=== PATIENT | female | born 1930 | race Caucasian/White ===

== ENCOUNTER → 2016-09-27 | Outpatient (CLI) | payer MEDICARE, BC ==
[~2016-09-27] MED LIST: CALCIUM CARBON500 M1 PO; CEFTIN500 MG PO; CIPRO 500MG TA500 MG PO; ELIQUIS 2.5 PO; FISH OIL CONC1000 MG PO; FOSAMAX PO; KLONOPIN 0.5MG0.5 MG PO; KLONOPIN 1MG1 MG PO; LEVAQUIN 750MG750 M1 PO; LOMOTIL 0.025 M1 TAB PO; MULTIPLE VITAMI1 TAB PO; MVI; OSCAL 500 TAB500 MG PO; PROTONIX 40MG T40 MG PO; TIMOPTIC; TIMOPTIC 0.5%-15 OU; ULTRAM 50MG TAB50 MG PO; VITAMIN E1000 U/CAP PO; VITAMIN E200 I1 PO
== END ==
LOC: COL.RAD 11:07
DX: M25.552 Pain in left hip (principal)
CPT/HCPCS: J3301; Q9967

== ENCOUNTER → 2016-12-05 | Outpatient (CLI) | payer MEDICARE, BC | LOC: COL.RAD 09:08 | DX: M16.12 Unilateral primary osteoarthritis, left hip (principal) | CPT/HCPCS: J3301; Q9967 ==

== ENCOUNTER 2017-01-26 16:00 | Inpatient (IN) | payer MEDICARE, BC ==
[~2017-01-26] VITALS: Ht 152.4 cm; Wt 49.6 kg
[~2017-01-26 16:00] MED LIST changes: -ELIQUIS 2.5 PO; -OSCAL 500 TAB500 MG PO; -ULTRAM 50MG TAB50 MG PO
[2017-02-20] VITALS (11 sets, daily range): BP systolic 94–126; BP diastolic 42–65; PULSE 59–85; TEMP 98.2–98.3
[2017-02-20] MEDS ORDERED: ULTRAM 50MG TAB50 MG PO (07:19)
[2017-02-21] VITALS (7 sets, daily range): BP systolic 82–1405; BP diastolic 33–80; PULSE 66–77; TEMP 97.5–98.6
[2017-02-21 06:25] LABS: HEMATOCRIT 35.3 % (37.0-47.0); HEMOGLOBIN 11.4 g/dl (12.5-16.0)
[2017-02-22] VITALS (7 sets, daily range): BP systolic 93–118; BP diastolic 35–53; PULSE 70–90; TEMP 96.9–98.3
[2017-02-22 07:59] LABS: HEMATOCRIT 38.2 % (37.0-47.0); HEMOGLOBIN 12.1 g/dl (12.5-16.0)
[2017-02-23 04:17] VITALS: BP 90/43; PULSE 92; TEMP 98.7
[2017-02-23 05:20] VITALS: BP 110/62
[2017-02-23 06:00] LABS: HEMATOCRIT 36.5 % (37.0-47.0); HEMOGLOBIN 11.5 g/dl (12.5-16.0)
[2017-02-23 07:17] VITALS: BP 105/51; PULSE 92; TEMP 98.2
[2017-02-23 09:56] VITALS: BP 105/51; PULSE 92; TEMP 98.2
== END 2017-02-23 10:49 | DRG 470 ==
LOC: JCC 02-20 06:11
PROVIDERS: Orthopaedic Surgery
PROC: 0SRB0JA Replacement of Left Hip Joint with Synthetic Substitute, Uncemented, Open Approach (ICD-10-PCS; principal; 2017-02-20 08:30)
DX: M16.12 Unilateral primary osteoarthritis, left hip (principal); E44.0 Moderate protein-calorie malnutrition; Z87.891 Personal history of nicotine dependence
CPT/HCPCS: A4315; A9284; C1713; C1776; J0690; J1100; J2250; J2405; J2704; J7030; J7042

== ENCOUNTER → 2017-02-13 | Outpatient (CLI) | payer MEDICARE, BC ==
[~2017-02-13] MED LIST changes: +ELIQUIS 2.5 PO; +OSCAL 500 TAB500 MG PO; +ULTRAM 50MG TAB50 MG PO
[2017-02-13 15:56] LABS: HIV 1/2 Antibodies Non-Reactive; HIV-1p24 Antigen Non-Reactive
== END ==
LOC: COL.LAB 14:49
PROVIDERS: Orthopaedic Surgery
DX: Z96.642 Presence of left artificial hip joint (principal)

== ENCOUNTER 2017-04-29 12:24 | Inpatient (IN) | payer MEDICARE, BC ==
[2017-04-29] VITALS (343 sets, daily range): BP systolic 136–165; BP diastolic 66–83; PULSE 86–841; TEMP 98.4; O2SAT 82–100
[~2017-04-29] VITALS: Ht 152.4 cm; Wt 51.4 kg
[~2017-04-29 12:24] MED LIST changes: -ELIQUIS 2.5 PO; -OSCAL 500 TAB500 MG PO
[2017-04-29] MEDS ORDERED: OSCAL 500 TAB500 MG PO (12:56)
[2017-04-29 13:29] LABS: BASO # 0.1 (0.0-0.2); EOS # 0.3 (0.0-0.7); EOS % 3.2 % (0-4.0); GRAN # 5.9 (1.4-6.5); GRAN % 69.5 % (42.2-75.2); HEMATOCRIT 41.5 % (37.0-47.0); HEMOGLOBIN 13.1 g/dl (12.5-16.0); LYMPH # 1.2 (1.2-3.4); LYMPH % 13.8 % (20.0-51.0); MEAN CELL VOLUME 91 fl (80.0-100.0); MEAN CORPUSCULAR HEMOGLOBIN 29 pg (27.0-31.0); MEAN CORPUSCULAR HGB CONC 32 g/dl (33.0-37.0); MEAN PLATELET VOLUME 9.8 fl (7.4-10.4); PLATELET COUNT 224 K/mm3 (130-400); RED BLOOD COUNT 4.55 M/mm3 (4.10-5.30); REDCELL DISTRIBUTION WIDTH-CV 12.4 % (11.5-14.5); WHITE BLOOD COUNT 8.4 K/mm3 (4.8-10.8)
[2017-04-29 13:46] LABS: PH 5 (5-8); URINE APPEARANCE Hazy; URINE BACTERIA None Seen /hpf; URINE BILIRUBIN Negative (NEGATIVE); URINE BLOOD Negative (NEGATIVE); URINE COLOR Yellow; URINE GLUCOSE Negative (NEGATIVE); URINE KETONE Negative (NEGATIVE); URINE UROBILINOGEN Negative (NEGATIVE)
[2017-04-29 13:47] LABS: ALANINE AMINOTRANSFERASE 21 U/L (9-52); ALBUMIN 3.7 gm/dL (3.5-5.0); ALKALINE PHOSPHATASE 81 U/L (50-136); ANION GAP 8 mmol/L (7-16); BILIRUBIN,TOTAL 0.6 mg/dL (0.0-1.0); BLOOD UREA NITROGEN 23 mg/dL (7-17); C-REACTIVE PROTEIN 2.8 mg/dL (0.0-0.9); CALCIUM 8.8 mg/dL (8.4-10.2); CARBON DIOXIDE 29 mmol/L (22-30); CHLORIDE 98 mmol/L (98-107); CREATININE, serum 0.79 mg/dL (0.52-1.25); GLUCOSE 82 mg/dL (74-106); POTASSIUM 4.7 mmol/L (3.4-5.0); SODIUM 135 mmol/L (137-145); TOTAL PROTEIN 6.3 gm/dL (6.4-8.2)
[2017-04-29 14:04] LABS: TROPONIN-I < 0.012 ng/mL (0.000-0.034)
[2017-04-30] VITALS (70 sets, daily range): BP systolic 119–140; BP diastolic 59–72; PULSE 69–97; TEMP 37.9; O2SAT 84–100
[2017-04-30 07:30] LABS: BASO % 0.8 % (0.0-2.0); EOS # 0.3 (0.0-0.7); EOS % 5.5 % (0-4.0); GRAN # 3.4 (1.4-6.5); GRAN % 66.4 % (42.2-75.2); HEMATOCRIT 38.3 % (37.0-47.0); HEMOGLOBIN 11.8 g/dl (12.5-16.0); LYMPH # 0.8 (1.2-3.4); LYMPH % 14.8 % (20.0-51.0); MEAN CELL VOLUME 94 fl (80.0-100.0); MEAN CORPUSCULAR HEMOGLOBIN 29 pg (27.0-31.0); MEAN CORPUSCULAR HGB CONC 31 g/dl (33.0-37.0); MEAN PLATELET VOLUME 9.7 fl (7.4-10.4); MONO # 0.6 (0.1-0.6); MONO % 11.9 % (1.7-9.3); PLATELET COUNT 172 K/mm3 (130-400); RED BLOOD COUNT 4.09 M/mm3 (4.10-5.30); REDCELL DISTRIBUTION WIDTH-CV 12.3 % (11.5-14.5); WHITE BLOOD COUNT 5.1 K/mm3 (4.8-10.8)
[2017-04-30 07:39] LABS: CALCIUM 8.2 mg/dL (8.4-10.2); CREATININE, serum 0.71 mg/dL (0.52-1.25); POTASSIUM 4.2 mmol/L (3.4-5.0)
[2017-05-01 03:14] VITALS: BP 121/50; PULSE 74; TEMP 98.7
[2017-05-01 08:38] VITALS: BP 134/60; PULSE 89; TEMP 98.7
[2017-05-01 09:35] LABS: BASO % 0.5 % (0.0-2.0); EOS # 0.4 (0.0-0.7); EOS % 5.5 % (0-4.0); GRAN # 5.4 (1.4-6.5); GRAN % 70.4 % (42.2-75.2); LYMPH # 1.1 (1.2-3.4); LYMPH % 14.4 % (20.0-51.0); MEAN CELL VOLUME 92 fl (80.0-100.0); MEAN CORPUSCULAR HEMOGLOBIN 29 pg (27.0-31.0); MEAN CORPUSCULAR HGB CONC 32 g/dl (33.0-37.0); MEAN PLATELET VOLUME 9.5 fl (7.4-10.4); MONO # 0.7 (0.1-0.6); MONO % 8.9 % (1.7-9.3); PLATELET COUNT 204 K/mm3 (130-400); RED BLOOD COUNT 4.45 M/mm3 (4.10-5.30); REDCELL DISTRIBUTION WIDTH-CV 12.5 % (11.5-14.5); WHITE BLOOD COUNT 7.7 K/mm3 (4.8-10.8)
[2017-05-01 09:50] LABS: CALCIUM 8.9 mg/dL (8.4-10.2); CREATININE, serum 0.81 mg/dL (0.52-1.25); POTASSIUM 3.7 mmol/L (3.4-5.0)
[2017-05-01 11:30] VITALS: BP 11/56; PULSE 77; TEMP 98.5
[2017-05-01 17:07] VITALS: BP 118/52; PULSE 74; TEMP 98.1
[2017-05-01 19:16] VITALS: BP 108/49; PULSE 73; TEMP 97.9
[2017-05-02 00:02] VITALS: BP 120/54; PULSE 66; TEMP 97.8
[2017-05-02 03:27] VITALS: BP 101/54; PULSE 69; TEMP 99
[2017-05-02 06:40] LABS: BASO # 0.1 (0.0-0.2); BASO % 0.8 % (0.0-2.0); EOS # 0.5 (0.0-0.7); EOS % 7.4 % (0-4.0); GRAN # 3.6 (1.4-6.5); GRAN % 58.9 % (42.2-75.2); LYMPH # 1.3 (1.2-3.4); LYMPH % 20.7 % (20.0-51.0); MEAN CELL VOLUME 92 fl (80.0-100.0); MEAN CORPUSCULAR HGB CONC 31 g/dl (33.0-37.0); MEAN PLATELET VOLUME 9.5 fl (7.4-10.4); MONO # 0.7 (0.1-0.6); PLATELET COUNT 178 K/mm3 (130-400); RED BLOOD COUNT 3.99 M/mm3 (4.10-5.30); REDCELL DISTRIBUTION WIDTH-CV 12.5 % (11.5-14.5); WHITE BLOOD COUNT 6.1 K/mm3 (4.8-10.8)
[2017-05-02 06:46] LABS: HEMATOCRIT 36.8 % (37.0-47.0); HEMOGLOBIN 11.4 g/dl (12.5-16.0); MEAN CORPUSCULAR HEMOGLOBIN 29 pg (27.0-31.0)
[2017-05-02 06:51] LABS: CALCIUM 8.5 mg/dL (8.4-10.2); CREATININE, serum 0.69 mg/dL (0.52-1.25)
[2017-05-02 07:37] VITALS: BP 115/46; PULSE 71; TEMP 97.2
[2017-05-02] MEDS ORDERED: ELIQUIS 2.5 PO (09:52)
== END 2017-05-02 11:16 | disposition home health service (06) | DRG 176 ==
LOC: COL.ER 12:24 → ICU 15:25 → MEDICAL 15:25 → ICU 15:25 → COL.ER 15:25 → MEDICAL 04-30 12:03 → ICU 04-30 12:03 → MEDICAL 05-02 11:16
PROVIDERS: Family Medicine
DX: I26.99 Other pulmonary embolism without acute cor pulmonale (principal); E87.1 Hypo-osmolality and hyponatremia; I82.4Z2 Acute embolism and thrombosis of unspecified deep veins of left distal lower extremity; Z87.891 Personal history of nicotine dependence; Z96.642 Presence of left artificial hip joint
CPT/HCPCS: 99223-AI; 99233-AI; 99239; J1650; J7030

== ENCOUNTER 2017-05-06 11:05 | Emergency (ER) | payer MEDICARE, BC ==
[~2017-05-06] VITALS: Ht 152.4 cm; Wt 50.5 kg
[~2017-05-06 11:05] MED LIST changes: +ELIQUIS 2.5 PO; +OSCAL 500 TAB500 MG PO
[2017-05-06 11:07] VITALS: TEMP 97.7
[2017-05-06 11:44] LABS: BASO # 0.1 (0.0-0.2); EOS # 0.3 (0.0-0.7); EOS % 4.3 % (0-4.0); GRAN # 4.1 (1.4-6.5); HEMATOCRIT 44.5 % (37.0-47.0); HEMOGLOBIN 13.7 g/dl (12.5-16.0); MEAN CELL VOLUME 92 fl (80.0-100.0); MEAN CORPUSCULAR HEMOGLOBIN 28 pg (27.0-31.0); MEAN CORPUSCULAR HGB CONC 31 g/dl (33.0-37.0); MEAN PLATELET VOLUME 9.9 fl (7.4-10.4); MONO # 0.7 (0.1-0.6); MONO % 11.2 % (1.7-9.3); PLATELET COUNT 283 K/mm3 (130-400); RED BLOOD COUNT 4.84 M/mm3 (4.10-5.30); REDCELL DISTRIBUTION WIDTH-CV 12.6 % (11.5-14.5); WHITE BLOOD COUNT 6.1 K/mm3 (4.8-10.8)
[2017-05-06 11:50] LABS: INR 1.2 (0.8-3.0); PROTHROMBIN TIME 12.8 SECONDS (9.7-12.8)
[2017-05-06 11:53] LABS: PARTIAL THROMBOPLASTIN TIME 31.2 SECONDS (26.0-37.0)
[2017-05-06 11:57] LABS: ADJUSTED CALCIUM 9.2 mg/dL (8.4-10.2); ALANINE AMINOTRANSFERASE 36 U/L (9-52); ALKALINE PHOSPHATASE 74 U/L (50-136); ANION GAP 10 mmol/L (7-16); BILIRUBIN,TOTAL 0.6 mg/dL (0.0-1.0); BLOOD UREA NITROGEN 18 mg/dL (7-17); CALCIUM 9.2 mg/dL (8.4-10.2); CARBON DIOXIDE 31 mmol/L (22-30); CHLORIDE 95 mmol/L (98-107); CREATININE, serum 0.79 mg/dL (0.52-1.25); GLUCOSE 75 mg/dL (74-106); LIPASE 66 U/L (23-300); POTASSIUM 4.3 mmol/L (3.4-5.0); SODIUM 137 mmol/L (137-145)
[2017-05-06 12:09] LABS: B-TYPE NATRIURETIC PEPTIDE 379 pg/mL (0-450)
[2017-05-06 12:16] LABS: TROPONIN-I < 0.012 ng/mL (0.000-0.034)
[2017-05-06 15:39] VITALS: BP 121/70; PULSE 83
== END 2017-05-06 15:40 | disposition home or self-care (01) ==
LOC: COL.ER 11:05
PROVIDERS: Emergency Medicine
DX: J43.9 Emphysema, unspecified (principal); R09.02 Hypoxemia; I26.99 Other pulmonary embolism without acute cor pulmonale; Z79.01 Long term (current) use of anticoagulants; Z99.81 Dependence on supplemental oxygen; Z86.718 Personal history of other venous thrombosis and embolism; Z96.642 Presence of left artificial hip joint
CPT/HCPCS: J1100; Q9967

== ENCOUNTER 2017-06-09 10:55 | Emergency (ER) | payer MEDICARE, BC ==
[~2017-06-09] VITALS: Ht 152.4 cm; Wt 51.3 kg
[2017-06-09 11:00] VITALS: TEMP 97.8
[2017-06-09 11:33] LABS: BASO # 0.1 (0.0-0.2); BASO % 0.8 % (0.0-2.0); EOS # 0.1 (0.0-0.7); EOS % 2.3 % (0-4.0); GRAN # 4.1 (1.4-6.5); GRAN % 68.1 % (42.2-75.2); HEMATOCRIT 43.1 % (37.0-47.0); HEMOGLOBIN 13.3 g/dl (12.5-16.0); LYMPH # 1.2 (1.2-3.4); LYMPH % 19.6 % (20.0-51.0); MEAN CELL VOLUME 91 fl (80.0-100.0); MEAN CORPUSCULAR HEMOGLOBIN 28 pg (27.0-31.0); MEAN CORPUSCULAR HGB CONC 31 g/dl (33.0-37.0); MEAN PLATELET VOLUME 9.5 fl (7.4-10.4); MONO # 0.5 (0.1-0.6); PLATELET COUNT 226 K/mm3 (130-400); RED BLOOD COUNT 4.76 M/mm3 (4.10-5.30); REDCELL DISTRIBUTION WIDTH-CV 13.6 % (11.5-14.5)
[2017-06-09 11:42] LABS: INR 1.7 (0.8-3.0); PROTHROMBIN TIME 19.1 SECONDS (9.7-12.8)
[2017-06-09 11:45] LABS: ADJUSTED CALCIUM 9.1 mg/dL (8.4-10.2); ALANINE AMINOTRANSFERASE 25 U/L (9-52); ALBUMIN 4.1 gm/dL (3.5-5.0); ALKALINE PHOSPHATASE 66 U/L (50-136); ANION GAP 7 mmol/L (7-16); BILIRUBIN,TOTAL 0.8 mg/dL (0.0-1.0); BLOOD UREA NITROGEN 18 mg/dL (7-17); CALCIUM 9.2 mg/dL (8.4-10.2); CARBON DIOXIDE 31 mmol/L (22-30); CHLORIDE 100 mmol/L (98-107); CREATININE, serum 0.76 mg/dL (0.52-1.25); GLUCOSE 91 mg/dL (74-106); LIPASE 81 U/L (23-300); POTASSIUM 4.6 mmol/L (3.4-5.0); SODIUM 137 mmol/L (137-145); TOTAL PROTEIN 6.9 gm/dL (6.4-8.2)
[2017-06-09 12:02] LABS: TROPONIN-I < 0.012 ng/mL (0.000-0.034)
[2017-06-09 12:07] LABS: PH 6 (5-8); SQUAMOUS EPITHELIAL 0-2 /hpf; URINE APPEARANCE Hazy; URINE BACTERIA None Seen /hpf; URINE BILIRUBIN Negative (NEGATIVE); URINE BLOOD Negative (NEGATIVE); URINE COLOR Yellow; URINE GLUCOSE Negative (NEGATIVE); URINE KETONE Negative (NEGATIVE); URINE RBC 0-2 /hpf; URINE UROBILINOGEN Negative (NEGATIVE); URINE WBC 0-2 /hpf
[2017-06-09 13:25] VITALS: BP 136/63; PULSE 75
== END 2017-06-09 13:27 | disposition home or self-care (01) ==
LOC: COL.ER 10:55
PROVIDERS: Emergency Medicine
DX: R07.9 Chest pain, unspecified (principal); R53.81 Other malaise; Z90.49 Acquired absence of other specified parts of digestive tract; Z90.710 Acquired absence of both cervix and uterus; Z90.89 Acquired absence of other organs; Z79.01 Long term (current) use of anticoagulants
CPT/HCPCS: J7040; Q9967

== ENCOUNTER 2017-07-10 17:11 | Observation (INO) | payer MEDICARE, BC ==
[~2017-07-10] VITALS: Ht 152.4 cm; Wt 51.6 kg
[2017-07-10] MEDS ORDERED: COUMADIN 22.5 MG/TAB PO (17:30)
[2017-07-10 18:29] LABS: BASO # 0.1 (0.0-0.2); BASO % 0.8 % (0.0-2.0); EOS # 0.1 (0.0-0.7); EOS % 1.7 % (0-4.0); GRAN # 5.5 (1.4-6.5); GRAN % 72.7 % (42.2-75.2); HEMATOCRIT 42.9 % (37.0-47.0); HEMOGLOBIN 13.6 g/dl (12.5-16.0); LYMPH # 1.1 (1.2-3.4); LYMPH % 14.2 % (20.0-51.0); MEAN CELL VOLUME 91 fl (80.0-100.0); MEAN CORPUSCULAR HEMOGLOBIN 29 pg (27.0-31.0); MEAN CORPUSCULAR HGB CONC 32 g/dl (33.0-37.0); MEAN PLATELET VOLUME 9.4 fl (7.4-10.4); MONO # 0.8 (0.1-0.6); MONO % 10.2 % (1.7-9.3); PLATELET COUNT 247 K/mm3 (130-400); RED BLOOD COUNT 4.71 M/mm3 (4.10-5.30); WHITE BLOOD COUNT 7.5 K/mm3 (4.8-10.8)
[2017-07-10 18:43] LABS: INR 2.5 (0.8-3.0); PROTHROMBIN TIME 28.6 SECONDS (9.7-12.8)
[2017-07-10 18:44] LABS: ADJUSTED CALCIUM 9.1 mg/dL (8.4-10.2); ALANINE AMINOTRANSFERASE 26 U/L (9-52); ALBUMIN 4.1 gm/dL (3.5-5.0); ALKALINE PHOSPHATASE 74 U/L (50-136); ANION GAP 10 mmol/L (7-16); BILIRUBIN,TOTAL 0.8 mg/dL (0.0-1.0); BLOOD UREA NITROGEN 23 mg/dL (7-17); CALCIUM 9.2 mg/dL (8.4-10.2); CARBON DIOXIDE 31 mmol/L (22-30); CHLORIDE 92 mmol/L (98-107); GLUCOSE 96 mg/dL (74-106); POTASSIUM 4.4 mmol/L (3.4-5.0); SODIUM 132 mmol/L (137-145); TOTAL PROTEIN 6.8 gm/dL (6.4-8.2)
[2017-07-10 19:00] LABS: TROPONIN-I < 0.012 ng/mL (0.000-0.034)
[2017-07-11 00:52] VITALS: BP 150/50; PULSE 86; TEMP 97.5
[2017-07-11] MEDS ORDERED: COUMADIN 5MG5 MG/TAB PO (02:23)
[2017-07-11 03:39] VITALS: BP 125/58; PULSE 79; TEMP 97.5
[2017-07-11 06:38] LABS: BASO % 0.4 % (0.0-2.0); EOS % 0.6 % (0-4.0); GRAN # 5.4 (1.4-6.5); GRAN % 74.8 % (42.2-75.2); HEMATOCRIT 37.7 % (37.0-47.0); LYMPH # 0.9 (1.2-3.4); LYMPH % 12.3 % (20.0-51.0); MEAN CELL VOLUME 93 fl (80.0-100.0); MEAN CORPUSCULAR HEMOGLOBIN 29 pg (27.0-31.0); MEAN CORPUSCULAR HGB CONC 31 g/dl (33.0-37.0); MEAN PLATELET VOLUME 9.3 fl (7.4-10.4); MONO # 0.8 (0.1-0.6); MONO % 11.5 % (1.7-9.3); PLATELET COUNT 198 K/mm3 (130-400); RED BLOOD COUNT 4.06 M/mm3 (4.10-5.30); WHITE BLOOD COUNT 7.2 K/mm3 (4.8-10.8)
[2017-07-11 06:40] LABS: INR 2.3 (0.8-3.0); PROTHROMBIN TIME 26.1 SECONDS (9.7-12.8)
[2017-07-11 06:41] LABS: HEMOGLOBIN 11.7 g/dl (12.5-16.0)
[2017-07-11 06:50] LABS: CALCIUM 8.5 mg/dL (8.4-10.2); CREATININE, serum 0.68 mg/dL (0.52-1.25); POTASSIUM 4.2 mmol/L (3.4-5.0)
[2017-07-11 07:27] VITALS: BP 116/50; PULSE 75; TEMP 98.3
[2017-07-11 11:26] VITALS: BP 114/53; PULSE 83; TEMP 98.1
[2017-07-16] MEDS ORDERED: VITAMIN D31000 I1 PO (13:27)
[2017-07-16] MEDS ORDERED: COUMADIN 22.5 MG/TAB PO (13:58)
== END 2017-07-11 14:18 | disposition home or self-care (01) ==
LOC: COL.ER 17:11 → PEDS 23:31
PROVIDERS: Emergency Medicine; Nurse Practitioner Family
DX: S02.2XXA Fracture of nasal bones, initial encounter for closed fracture (principal); S00.83XA Contusion of other part of head, initial encounter; R04.0 Epistaxis; W13.3XXA Fall through floor, initial encounter; E44.0 Moderate protein-calorie malnutrition; Y92.59 Other trade areas as the place of occurrence of the external cause; J44.9 Chronic obstructive pulmonary disease, unspecified; I10 Essential (primary) hypertension; E87.1 Hypo-osmolality and hyponatremia; M19.90 Unspecified osteoarthritis, unspecified site; Z96.642 Presence of left artificial hip joint; Z90.49 Acquired absence of other specified parts of digestive tract; Z79.01 Long term (current) use of anticoagulants; Z86.711 Personal history of pulmonary embolism; Z90.710 Acquired absence of both cervix and uterus; Z87.891 Personal history of nicotine dependence; Z82.49 Family history of ischemic heart disease and other diseases of the circulatory system
CPT/HCPCS: G0378; J0690; J1170; J2405; J2765; J3010; J7030; Q9967

== ENCOUNTER 2017-08-28 19:08 | Emergency (ER) | payer MEDICARE, BC ==
[~2017-08-28] VITALS: Wt 49.5 kg
[~2017-08-28 19:08] MED LIST changes: +COUMADIN 22.5 MG/TAB PO; +COUMADIN 5MG5 MG/TAB PO; +VITAMIN D31000 I1 PO
[2017-08-28] MEDS ORDERED: XARELTO20 MG PO (19:26)
[2017-08-28 19:30] LABS: BASO # 0.1 (0.0-0.2); BASO % 0.7 % (0.0-2.0); EOS # 0.2 (0.0-0.7); EOS % 2.4 % (0-4.0); GRAN # 4.5 (1.4-6.5); HEMATOCRIT 34.2 % (37.0-47.0); HEMOGLOBIN 10.7 g/dl (12.5-16.0); LYMPH # 1.3 (1.2-3.4); LYMPH % 18.9 % (20.0-51.0); MEAN CELL VOLUME 96 fl (80.0-100.0); MEAN CORPUSCULAR HEMOGLOBIN 30 pg (27.0-31.0); MEAN CORPUSCULAR HGB CONC 31 g/dl (33.0-37.0); MEAN PLATELET VOLUME 10.1 fl (7.4-10.4); MONO # 0.9 (0.1-0.6); MONO % 12.9 % (1.7-9.3); PLATELET COUNT 268 K/mm3 (130-400); RED BLOOD COUNT 3.56 M/mm3 (4.10-5.30)
[2017-08-28 19:32] LABS: INR 1.1 (0.8-3.0); PROTHROMBIN TIME 12.7 SECONDS (9.7-12.8)
[2017-08-28 19:34] LABS: PARTIAL THROMBOPLASTIN TIME 25.8 SECONDS (26.0-37.0)
[2017-08-28 19:37] LABS: ALANINE AMINOTRANSFERASE 31 U/L (9-52); ALBUMIN 4.1 gm/dL (3.5-5.0); ALKALINE PHOSPHATASE 72 U/L (50-136); ANION GAP 8 mmol/L (7-16); BILIRUBIN,TOTAL 0.3 mg/dL (0.0-1.0); BLOOD UREA NITROGEN 23 mg/dL (7-17); CALCIUM 9.1 mg/dL (8.4-10.2); CARBON DIOXIDE 34 mmol/L (22-30); CHLORIDE 97 mmol/L (98-107); CREATININE, serum 1.12 mg/dL (0.52-1.25); GLUCOSE 103 mg/dL (74-106); POTASSIUM 4.2 mmol/L (3.4-5.0); SODIUM 139 mmol/L (137-145); TOTAL PROTEIN 6.5 gm/dL (6.4-8.2)
[2017-08-28 19:48] LABS: TROPONIN-I < 0.012 ng/mL (0.000-0.034)
[2017-08-28 21:12] VITALS: BP 141/54; PULSE 79
== END 2017-08-28 21:22 | disposition short-term general hospital (02) ==
LOC: COL.ER 19:08
PROVIDERS: Emergency Medicine
DX: R29.810 Facial weakness (principal); J44.9 Chronic obstructive pulmonary disease, unspecified; Z86.711 Personal history of pulmonary embolism; Z79.01 Long term (current) use of anticoagulants
CPT/HCPCS: J1953; J7030

== ENCOUNTER 2017-09-04 15:03 | Inpatient (IN) | payer MEDICARE, BC ==
[~2017-09-04] VITALS: Ht 152.4 cm; Wt 52.3 kg
[~2017-09-04 15:03] MED LIST changes: +XARELTO20 MG PO
[2017-09-04 17:26] VITALS: BP 150/61; PULSE 79; TEMP 98.7
[2017-09-04] MEDS ORDERED: PRILOSEC 20MG20 MG PO (18:26)
[2017-09-04] MEDS ORDERED: PROBIOTIC ACID1 EAC3 PO (18:27)
[2017-09-04] MEDS ORDERED: PROLIA60 MG/ML SQ (18:32)
[2017-09-05 03:51] VITALS: BP 132/53; PULSE 63; TEMP 97.6
[2017-09-05 16:44] VITALS: BP 132/50; PULSE 65; TEMP 97.9
[2017-09-06 07:19] VITALS: BP 127/53; BP 96/74; PULSE 71; TEMP 98.1
[2017-09-06 17:22] VITALS: BP 126/62; PULSE 85; TEMP 98.3
[2017-09-07 05:06] VITALS: BP 136/59; PULSE 65; TEMP 98.4
[2017-09-07 16:09] VITALS: BP 117/62; PULSE 75; TEMP 98.6
[2017-09-08 05:33] VITALS: BP 109/46; PULSE 70; TEMP 98.8
[2017-09-08 16:15] VITALS: BP 126/59; PULSE 72; TEMP 98
[2017-09-09 05:22] VITALS: BP 108/43; PULSE 73; TEMP 97.4
[2017-09-09 15:11] VITALS: BP 116/43; PULSE 77; TEMP 98.4
[2017-09-10 06:11] VITALS: BP 118/34; PULSE 78; TEMP 98.2
[2017-09-10 16:56] VITALS: BP 141/58; PULSE 80; TEMP 97.8
[2017-09-11 05:05] VITALS: BP 111/47; PULSE 69; TEMP 99.7
[2017-09-11 18:10] VITALS: BP 146/46; PULSE 84; TEMP 98.4
[2017-09-12 06:09] VITALS: BP 119/51; PULSE 73; TEMP 98.2
[2017-09-12 17:16] VITALS: BP 112/64; PULSE 82; TEMP 98.3
[2017-09-12 19:46] LABS: COLLECTION METHOD CLEAN CATCH
[2017-09-12 19:51] LABS: MUCOUS Present /lpf; PH 7 (5-8); URINE APPEARANCE Clear; URINE BACTERIA None Seen /hpf; URINE BILIRUBIN Negative (NEGATIVE); URINE BLOOD Negative (NEGATIVE); URINE COLOR Yellow; URINE GLUCOSE Negative (NEGATIVE); URINE KETONE Negative (NEGATIVE); URINE LEUKOCYTE ESTERASE Negative (NEGATIVE); URINE PROTEIN(semi-quant) Negative (NEGATIVE); URINE RBC 0-2 /hpf; URINE UROBILINOGEN Negative (NEGATIVE); URINE WBC 0-2 /hpf
[2017-09-13 05:12] VITALS: BP 140/47; PULSE 66; TEMP 98.5
[2017-09-13 07:53] LABS: BASO % 0.8 % (0.0-2.0); EOS # 0.2 (0.0-0.7); EOS % 3.6 % (0-4.0); GRAN # 3.4 (1.4-6.5); GRAN % 63.8 % (42.2-75.2); LYMPH # 1.1 (1.2-3.4); LYMPH % 20.2 % (20.0-51.0); MEAN CELL VOLUME 95 fl (80.0-100.0); MEAN CORPUSCULAR HGB CONC 30 g/dl (33.0-37.0); MEAN PLATELET VOLUME 10.1 fl (7.4-10.4); MONO # 0.6 (0.1-0.6); MONO % 11.2 % (1.7-9.3); PLATELET COUNT 234 K/mm3 (130-400); RED BLOOD COUNT 2.95 M/mm3 (4.10-5.30); WHITE BLOOD COUNT 5.3 K/mm3 (4.8-10.8)
[2017-09-13 07:56] LABS: HEMATOCRIT 28.1 % (37.0-47.0); HEMOGLOBIN 8.3 g/dl (12.5-16.0); MEAN CORPUSCULAR HEMOGLOBIN 28 pg (27.0-31.0)
[2017-09-13 08:13] LABS: CALCIUM 8.6 mg/dL (8.4-10.2); CREATININE, serum 0.84 mg/dL (0.52-1.25); MAGNESIUM 1.7 mg/dL (1.6-2.3); POTASSIUM 4.2 mmol/L (3.4-5.0)
[2017-09-13 15:03] VITALS: BP 119/51; PULSE 82; TEMP 97.5
[2017-09-14 05:37] VITALS: BP 125/53; PULSE 70; TEMP 98
[2017-09-14] MEDS ORDERED: KEPPRA 500MG500 MG PO (08:40)
[2017-09-14] MEDS ORDERED: TYLENOL 325MG325 MG PO (08:40)
[2017-09-14] MEDS ORDERED: KLONOPIN 1MG1 MG PO (08:40)
[2017-09-14] MEDS ORDERED: ULTRAM 50MG TAB50 MG PO (08:40)
[2017-09-14] MEDS ORDERED: FERROUS SU325 MG/TAB PO (08:45)
[2017-09-14 12:43] VITALS: BP 121/52; PULSE 78; TEMP 98.7
== END 2017-09-14 14:15 | disposition home health service (06) | DRG 65 ==
PROVIDERS: Internal Medicine
DX: I62.03 Nontraumatic chronic subdural hemorrhage (principal); E44.0 Moderate protein-calorie malnutrition; R47.81 Slurred speech; R29.810 Facial weakness; J44.9 Chronic obstructive pulmonary disease, unspecified; Z87.891 Personal history of nicotine dependence
CPT/HCPCS: 99222-AI; 99232-AI; 99239